=== PATIENT | female | born 1960 | race Hispanic/Latino ===

== ENCOUNTER 2018-05-24 18:10 | Inpatient (IN) | payer OTHER ==
[~2018-05-24] VITALS: Ht 154.9 cm; Wt 87.5 kg
[2018-05-24 18:44] LABS: BASOPHILS % (AUTO) 0.4 % (0.0-5.0); EOSINOPHILS % (AUTO) 2.5 % (0.0-8.0); HEMATOCRIT 40.9 % (36-48); LYMPHOCYTES % (AUTO) 14.2 % (21.0-51.0); MEAN CORPUSCULAR HEMOGLOBIN 28.7 pg (27.0-33.0); MEAN CORPUSCULAR HGB CONC 32.7 g/dL (32.0-36.0); MEAN CORPUSCULAR VOLUME 87.7 fL (79-99); MONOCYTES % (AUTO) 3.2 % (3.0-13.0); NEUTROPHILS % (AUTO) 79.7 % (40.0-77.0); PLATELET COUNT (AUTO) 181 K/uL (130-400); RED BLOOD CELL COUNT(AUTO) 4.66 MIL/uL (4.00-5.50); RED CELL DISTRIBUTION WIDTH 14.4 % (11.0-15.5); WHITE BLOOD COUNT (AUTO) 8.4 K/uL (4.8-10.8)
[2018-05-24] MEDS ORDERED: SODIUM CHLORIDE 0.9% 1000ML 1,000 ML IV ONE (18:49)
[2018-05-24] MEDS ORDERED: ONDANSETRON HCL 4 MG/2 ML VIAL ONE ×2 (18:49→21:30)
[2018-05-24 18:54] LABS: CREATININE 1.2 mg/dL (0.5-1.5)
[2018-05-24 18:58] LABS: ALBUMIN 3.7 g/dL (3.5-5.0); BILIRUBIN,TOTAL 0.8 mg/dL (0.2-1.0); TOTAL PROTEIN, SERUM 8.9 g/dL (6.0-8.3)
[2018-05-24 19:37] LABS: BILIRUBIN,URINE Small (NEGATIVE); COLOR,URINE Dark Yellow (YELLOW); GLUCOSE, URINE (UA) >=1000 mg/dL (NEGATIVE); KETONES,URINE 15 mg/dL (NEGATIVE); LEUKOCYTE ESTERASE ,URINE Small (NEGATIVE); NITRATE,URINE Positive (NEGATIVE); OCCULT BLOOD,URINE Trace (NEGATIVE); PROTEIN,URINE Trace (NEGATIVE)
[2018-05-24 19:39] LABS: APPEARANCE,URINE TURBID (CLEAR)
[2018-05-24 19:52] LABS: BACTERIA,URINE Moderate /HPF (None Seen); RBC,URINE None Seen /HPF (0-1); SQUAMOUS EPITHELIAL CELL,UR 30-50 /HPF (0-2)
[2018-05-24] MEDS ORDERED: MORPHINE SULFATE 2 MG/ML 1ML SYG IV PRN (21:15)
[2018-05-24] MEDS ORDERED: MORPHINE SULFATE 4 MG/1ML SYG ONE (21:30)
[2018-05-24 23:15] VITALS: BP 130/75
[2018-05-24] MEDS ORDERED: DEXTROSE 50%-WATER 50 ML DISP.SYRIN IV PRN (23:15)
[2018-05-24] MEDS ORDERED: GLUCAGON 1MG KIT 1 MG ML IM PRN (23:15)
[2018-05-24] MEDS ORDERED: CEFTRIAXONE SODIUM 1 GM IVP ONE (23:45)
[2018-05-25] MEDS ORDERED: INSU100I3 SQ (00:16)
[2018-05-25] MEDS ORDERED: FLU60SYR IM (00:16)
[2018-05-25] MEDS ORDERED: LISI1TAB13 PO (00:16)
[2018-05-25] MEDS ORDERED: SITA1TBM4 PO (00:16)
[2018-05-25] MEDS ORDERED: SIMV40TA59 PO (00:16)
[2018-05-25] MEDS ORDERED: METO-391 PO (00:16)
[2018-05-25 00:20] VITALS: BP 130/75
[2018-05-25] MEDS ORDERED: MORPHINE SULFATE 4 MG/1ML SYG ONE ×3 (00:59→18:06)
[2018-05-25] MEDS ORDERED: CEFTRIAXONE SODIUM 1 GM ONE (01:01)
[2018-05-25] MEDS: SODIUM CHLORIDE 0.9% 1000ML 1,000 ML IV SCH ×5 (01:19→20:27)
[2018-05-25 04:00] VITALS: BP 119/60
[2018-05-25] MEDS ORDERED: CEFTRIAXONE SODIUM 2 GM VIAL IVP SCH (07:15)
[2018-05-25] MEDS ORDERED: INSULIN HUMULIN R 100 UNIT/ML 3ML SQ SCH (07:30)
[2018-05-25 08:00] VITALS: BP 139/74
[2018-05-25] MEDS: FAMOTIDINE/PF 20 MG/2 ML VIAL IV SCH ×2 (09:00→19:41)
[2018-05-25] MEDS: ONDANSETRON HCL 4 MG/2 ML VIAL IV PRN ×2 (09:31→19:41)
[2018-05-25 11:00] VITALS: BP 139/73
[2018-05-25] MEDS: INSULIN HUMULIN R 100 UNIT/ML 3ML SQ SCH ×2 (12:00→18:00)
[2018-05-25 16:00] VITALS: BP 112/74
[2018-05-25 20:00] VITALS: BP 136/68
[2018-05-26] VITALS: BP 140/68
[2018-05-26] MEDS: CEFTRIAXONE SODIUM 2 GM VIAL IVP SCH (00:32)
[2018-05-26] MEDS: ACETAMINOPHEN 325 MG TAB PO PRN ×3 (00:57→14:31)
[2018-05-26] MEDS ORDERED: ACETAMINOPHEN 325 MG TAB PO PRN (01:00)
[2018-05-26 04:00] VITALS: BP 125/75
[2018-05-26] MEDS: SODIUM CHLORIDE 0.9% 1000ML 1,000 ML IV SCH ×3 (04:48→23:00)
[2018-05-26] MEDS: ONDANSETRON HCL 4 MG/2 ML VIAL IV PRN ×3 (04:55→18:42)
[2018-05-26 05:11] LABS: BASOPHILS % (AUTO) 0.4 % (0.0-5.0); EOSINOPHILS % (AUTO) 3.1 % (0.0-8.0); HEMATOCRIT 31.7 % (36-48); LYMPHOCYTES % (AUTO) 18.4 % (21.0-51.0); MEAN CORPUSCULAR HEMOGLOBIN 28.7 pg (27.0-33.0); MEAN CORPUSCULAR HGB CONC 32.9 g/dL (32.0-36.0); MEAN CORPUSCULAR VOLUME 87.1 fL (79-99); MONOCYTES % (AUTO) 7.3 % (3.0-13.0); NEUTROPHILS % (AUTO) 70.8 % (40.0-77.0); PLATELET COUNT (AUTO) 118 K/uL (130-400); RED BLOOD CELL COUNT(AUTO) 3.64 MIL/uL (4.00-5.50); RED CELL DISTRIBUTION WIDTH 14.4 % (11.0-15.5); WHITE BLOOD COUNT (AUTO) 6.2 K/uL (4.8-10.8)
[2018-05-26 05:28] LABS: CREATININE 0.8 mg/dL (0.5-1.5); POTASSIUM 3.9 mmol/L (3.5-5.1)
[2018-05-26] MEDS: INSULIN HUMULIN R 100 UNIT/ML 3ML SQ SCH ×4 (06:00→18:00)
[2018-05-26 08:00] VITALS: BP 142/73
[2018-05-26] MEDS: FAMOTIDINE/PF 20 MG/2 ML VIAL IV SCH ×2 (09:10→21:57)
[2018-05-26 11:00] VITALS: BP 145/74
[2018-05-26 16:00] VITALS: BP 124/73
[2018-05-26 20:00] VITALS: BP 142/72
[2018-05-26] MEDS ORDERED: BISACODYL 10 MG SUPP.RECT RC ONE ×2 (21:15→21:43)
[2018-05-26] MEDS ORDERED: MAGNESIUM CITRATE 296 ML SOLUTION NG ONE (21:15)
[2018-05-26] MEDS ORDERED: MAGNESIUM HYDROXIDE 30 ML/UDCUP NG SCH (21:15)
[2018-05-26] MEDS ORDERED: LACTULOSE 20 GM/30 ML UDCUP NG SCH (21:15)
[2018-05-26] MEDS ORDERED: LACTULOSE 20 GM/30 ML UDCUP ONE (21:42)
[2018-05-26] MEDS ORDERED: MAGNESIUM HYDROXIDE 30 ML/UDCUP ONE (21:42)
[2018-05-26] MEDS ORDERED: MAGNESIUM CITRATE 296 ML SOLUTION ONE (22:48)
[2018-05-27] VITALS: BP 136/75
[2018-05-27] MEDS: CEFTRIAXONE SODIUM 2 GM VIAL IVP SCH (00:26)
[2018-05-27 04:00] VITALS: BP 140/75
[2018-05-27 05:57] LABS: BASOPHILS % (AUTO) 0.6 % (0.0-5.0); HEMATOCRIT 30.1 % (36-48); LYMPHOCYTES % (AUTO) 25.3 % (21.0-51.0); MEAN CORPUSCULAR HEMOGLOBIN 29.8 pg (27.0-33.0); MEAN CORPUSCULAR HGB CONC 33.9 g/dL (32.0-36.0); MEAN CORPUSCULAR VOLUME 88.1 fL (79-99); MONOCYTES % (AUTO) 7.3 % (3.0-13.0); NEUTROPHILS % (AUTO) 63.8 % (40.0-77.0); PLATELET COUNT (AUTO) 142 K/uL (130-400); RED BLOOD CELL COUNT(AUTO) 3.42 MIL/uL (4.00-5.50); RED CELL DISTRIBUTION WIDTH 14.6 % (11.0-15.5); WHITE BLOOD COUNT (AUTO) 6.3 K/uL (4.8-10.8)
[2018-05-27] MEDS: INSULIN HUMULIN R 100 UNIT/ML 3ML SQ SCH ×2 (06:00)
[2018-05-27 06:01] LABS: CREATININE 0.8 mg/dL (0.5-1.5); POTASSIUM 3.4 mmol/L (3.5-5.1)
[2018-05-27] MEDS: SODIUM CHLORIDE 0.9% 1000ML 1,000 ML IV SCH (06:01)
[2018-05-27] MEDS ORDERED: POTASSIUM CHLORIDE 20MEQ/100ML 100 ML IV PRN (07:15)
[2018-05-27] MEDS ORDERED: LIDOCAINE HCL-MPF 1% 2ML VIAL IVP PRN ×2 (07:15)
[2018-05-27] MEDS ORDERED: POTASSIUM CHLORIDE 10MEQ/100ML 100 ML IV PRN (07:15)
[2018-05-27] MEDS ORDERED: POTASSIUM CHLORIDE 10% ELIXIR 20 MEQ/15 ML UDCUP PO PRN ×2 (07:15)
[2018-05-27] MEDS ORDERED: POTASSIUM CHLORIDE 20 MEQ ERTAB PO PRN ×2 (07:15)
[2018-05-27 08:06] VITALS: BP 138/71
[2018-05-27] MEDS: FAMOTIDINE/PF 20 MG/2 ML VIAL IV SCH (08:45)
[2018-05-27 11:29] VITALS: BP 139/69
== END 2018-05-27 11:40 | disposition home or self-care (01) | DRG 389 ==
LOC: EDH 18:10 → OBSVTOIN 18:11 → EDHIP 18:11 → 3AH 22:29
PROVIDERS: ADMIT Internal Medicine; ATTEND Internal Medicine
DX: K56.609 Unspecified intestinal obstruction, unspecified as to partial versus complete obstruction (principal); N39.0 Urinary tract infection, site not specified; E11.65 Type 2 diabetes mellitus with hyperglycemia; I10 Essential (primary) hypertension; E78.5 Hyperlipidemia, unspecified; E66.9 Obesity, unspecified; Z68.36 Body mass index [BMI] 36.0-36.9, adult; Z79.4 Long term (current) use of insulin; Z90.710 Acquired absence of both cervix and uterus; Z23 Encounter for immunization
CPT/HCPCS: 36415; 74176; 80048; 80053; 81001; 82150; 82948; 83690; 85025; 87077; 87088; 87186; 87804; A4218; G0378; J0696; J1815; J2270; J2405; J3490; J7030

== ENCOUNTER 2018-11-25 19:24 | Emergency (ER) | payer OTHER ==
[~2018-11-25 19:24] MED LIST: FLU60SYR IM; INSU100I3 SQ; LISI1TAB13 PO; METO-391 PO; SIMV40TA59 PO; SITA1TBM4 PO
[2018-11-25] MEDS ORDERED: ORPHENADRINE CITRATE 30 MG/ML ML ONE (19:55)
[2018-11-25] MEDS ORDERED: TRAMADOL HCL 50 MG TABLET ONE (19:56)
== END 2018-11-25 20:49 | disposition home or self-care (01) ==
LOC: EDH 19:24
DX: S00.83XA Contusion of other part of head, initial encounter (principal); S20.212A Contusion of left front wall of thorax, initial encounter; S70.01XA Contusion of right hip, initial encounter; S40.011A Contusion of right shoulder, initial encounter; Z91.013 Allergy to seafood; Z79.899 Other long term (current) drug therapy; E11.9 Type 2 diabetes mellitus without complications; E78.5 Hyperlipidemia, unspecified; I10 Essential (primary) hypertension; V49.19XA Passenger injured in collision with other motor vehicles in nontraffic accident, initial encounter; Y93.89 Activity, other specified; Y92.89 Other specified places as the place of occurrence of the external cause; Y99.8 Other external cause status
CPT/HCPCS: 71046; 71100; 73030 ×2; 73502; 96372; 99284; J2360